=== PATIENT | female | born 1975 | race Caucasian/White ===

== ENCOUNTER 2017-01-17 10:11 | Inpatient (IN) | payer MEDICAID ==
[~2017-01-17] VITALS: Ht 154.9 cm; Wt 60.1 kg
[2017-01-17 10:48] LABS: microscopic required? NO
[2017-01-17 10:56] LABS: BASOPHIL % 0.3 % (0-2); PLATELET COUNT 262 x10^3mcL (130-400); RED CELL DISTRIBUTION WIDTH 12.6 % (11.5-14.5)
[2017-01-17 11:09] LABS: urine erythrocyte NEGATIVE (NEGATIVE)
[2017-01-17] MEDS ORDERED: VITAMINS A & D1 EACH (13:28)
[2017-01-17] MEDS ORDERED: NAUSEA MED (13:29)
[2017-01-17 14:27] LABS: MAGNESIUM 2.2 mg/dL (1.8-2.4); PHOSPHOROUS 4.2 mg/dL (2.5-4.9)
[2017-01-17 14:32] LABS: T3 TOTAL 1.4 ng/mL
[2017-01-17 14:34] LABS: CHOLESTEROL/HDL RATIO 3.7
[2017-01-17 14:35] LABS: FREE T4 1.09 ng/dL (0.76-1.46); FREE THYROXINE INDEX 3.5 ug/dL (1.4-4.5); T4(THYROXINE) 11.6 ug/dL (4.7-13.3)
[2017-01-17 15:23] LABS: AMPHETAMINE QUAL UR NONE DETECTED (NEG <=1000)
[2017-01-17 15:33] VITALS: BP 115/74
[2017-01-17 17:08] VITALS: BP 113/68
[2017-01-17 21:53] VITALS: BP 103/60
[2017-01-18 08:55] LABS: BASOPHIL % 0.4 % (0-2); CALCIUM 8.6 mg/dL (8.5-10.1); CARBON DIOXIDE 22.4 mmol/L (21-32); CHLORIDE SERUM 105 mmol/L (98-107); CREATININE SERUM 0.7 mg/dL (0.6-1.0); GFR1 > 60 mL/min; GLUCOSE SERUM 97 mg/dL (74-106); PLATELET COUNT 211 x10^3mcL (130-400); POTASSIUM SERUM 3.9 mmol/L (3.5-5.1); RED CELL DISTRIBUTION WIDTH 12.9 % (11.5-14.5); SODIUM SERUM 139 mmol/L (136-145)
[2017-01-18 10:47] VITALS: BP 114/63
[2017-01-18 14:09] VITALS: BP 108/64
[2017-01-18 16:41] VITALS: BP 108/64
[2017-01-18 17:39] VITALS: BP 111/69
== END 2017-01-18 18:09 | disposition home or self-care (01) | DRG 563 ==
LOC: ED 10:11 → DU 13:19 → MU 15:15 → DU 15:17
PROVIDERS: Emergency Medicine; ADMIT Family Medicine
DX: O20.0 Threatened abortion (principal); I10 Essential (primary) hypertension; E78.5 Hyperlipidemia, unspecified; Z87.442 Personal history of urinary calculi; Z68.26 Body mass index [BMI] 26.0-26.9, adult; Z3A.00 Weeks of gestation of pregnancy not specified
CPT/HCPCS: 82962; 83880; 84439; J2405; J7030

== ENCOUNTER 2018-07-18 08:07 | Emergency (ER) | payer MEDICAID ==
[~2018-07-18] VITALS: Ht 152.4 cm; Wt 64.4 kg
[~2018-07-18 08:07] MED LIST: NAUSEA MED; VITAMINS A & D1 EACH
[2018-07-18 08:11] VITALS: Ht 152.4 cm; Wt 64.4 kg
[2018-07-18 08:40] LABS: microscopic required? NO
[2018-07-18 08:48] LABS: UA SPECIFIC GRAVITY <=1.005 (1.005-1.035); urine erythrocyte NEGATIVE (NEGATIVE)
[2018-07-18 08:53] LABS: BASOPHIL % 0.5 % (0-2); PLATELET COUNT 262 x10^3mcL (130-400); RED CELL DISTRIBUTION WIDTH 12.7 % (11.5-14.5)
[2018-07-18 09:14] LABS: CALCIUM 8.8 mg/dL (8.5-10.1); CARBON DIOXIDE 28.3 mmol/L (21-32); CHLORIDE SERUM 102 mmol/L (98-107); CREATININE SERUM 0.7 mg/dL (0.6-1.0); GFR1 > 60 mL/min; GLUCOSE SERUM 172 mg/dL (74-106); POTASSIUM SERUM 3.6 mmol/L (3.5-5.1); SODIUM SERUM 136 mmol/L (136-145)
[2018-07-18 09:19] LABS: ALBUMIN 3.7 g/dL (3.4-5.0); ALKALINE PHOSPHATASE 87 U/L (46-116); ALT/SGPT 15 U/L (14-59); AST/SGOT 14 U/L (15-37); BILIRUBIN TOTAL 0.32 mg/dL (0.20-1.00); LIPASE 169 IU/L (73-393); TOTAL PROTEIN, SERUM 7.6 g/dL (6.4-8.2)
[2018-07-18 10:28] VITALS: BP 115/60
== END 2018-07-18 10:28 | disposition home or self-care (01) ==
LOC: ED 08:07
PROVIDERS: Emergency Medicine
DX: R10.30 Lower abdominal pain, unspecified (principal); R11.2 Nausea with vomiting, unspecified; R19.7 Diarrhea, unspecified; I10 Essential (primary) hypertension; N64.4 Mastodynia; Z98.890 Other specified postprocedural states; Z87.442 Personal history of urinary calculi
CPT/HCPCS: J1885; J2405